=== PATIENT | female | born 1995 | race Caucasian/White ===

== ENCOUNTER 2017-10-24 08:24 | Emergency (ER) | payer MEDICAID ==
[2017-10-24 08:24] VITALS: BMI 35.7
[2017-10-24 09:16] LABS: INFLUENZA A B NEGATIVE FOR FLU A/B (NEGATIVE)
--- NOTE | 2017-10-24 09:22 | C.PDOC ---
History Of Present Illness 22 y/o female presents to ED with complaints of sore throat, mild cough, subjective fever, nausea, and vomiting for the last 3 days. Pt's daughter also here in ER with similar symptoms. Denies abdominal pain, diarrhea, or any other complaints. Time Seen by Provider: 10/24/17 08:46 Chief Complaint (Nursing): Flu-like Symptoms History Per: Patient History/Exam Limitations: no limitations Onset/Duration Of Symptoms: Days Current Symptoms Are (Timing): Still Present Location Of Pain: Throat Sick Contacts (Context): Family Member(s) Associated Symptoms: Fever, Sore Throat, Cough, Vomiting. denies: Diarrhea Ear Symptoms: Bilateral: None Recent travel outside of the [place]: No Additional History Per: Patient ( ) Past Medical History Reviewed: Historical Data, Nursing Documentation, Vital Signs Vital Signs: Last Vital Signs Temp 98.4 F 10/24/17 10:48 Pulse 93 H 10/24/17 10:48 Resp 20 10/24/17 10:48 BP 105/69 10/24/17 10:48 Pulse Ox 97 10/24/17 10:48 Surgical History: Family History: States: Unknown Family Hx - Social History Hx Alcohol Use: No Hx Substance Use: No - Immunization History Hx Tetanus Toxoid Vaccination: No Hx Influenza Vaccination: No Hx Pneumococcal Vaccination: No Review Of Systems Except As Marked, All Systems Reviewed And Found Negative. Constitutional: Positive for: Fever ENT: Positive for: Throat Pain. Negative for: Ear Pain, Nose Discharge, Nose Congestion Respiratory: Positive for: Cough. Negative for: Shortness of Breath, Sputum Gastrointestinal: Positive for: Nausea, Vomiting. Negative for: Abdominal Pain , Diarrhea Musculoskeletal: Negative for: Neck Pain Skin: Negative for: Rash, Bruising Neurological: Negative for: Headache, Dizziness Physical Exam - Physical Exam Appears: Non-toxic, No Acute Distress Skin: Normal Color, Warm, Dry Head: Atraumatic, Normacephalic Eye(s): bilateral: Normal Inspection Ear(s): Bilateral: Normal Nose: Normal Oral Mucosa: Moist Tongue: Normal Appearing Lips: Normal Appearing Throat: Erythema, Exudate, No Drooling Neck: Normal ROM, Supple Cardiovascular: Rhythm Regular, No Murmur Respiratory: Normal Breath Sounds, No Rales, No Rhonchi, No Wheezing Gastrointestinal/Abdominal: Soft, No Tenderness Extremity: Normal ROM, No Deformity Neurological/Psych: Oriented x3, Normal Speech ED Course And Treatment O2 Sat by Pulse Oximetry: 98 Pulse Ox Interpretation: Normal Medical Decision Making Medical Decision Making: Plan: Rapid strep Influenza AB Amoxicillin, Tylenol strep postivel. vitals stable. abd soft no ttp. stable for dc Disposition - Disposition Disposition: HOME/ ROUTINE Disposition Time: 09:21 Condition: STABLE Prescriptions: Amoxicillin [Amoxil 500 mg Cap] 500 mg PO TID #30 cap Instructions: Strep Throat (ED) Forms: [employer] (Azeri) Print Language: CYPRIOT - Clinical Impression Clinical Impression: Strep pharyngitis - Scribe Statement The provider has reviewed the documentation as recorded by the Scribe Cecilia Ballard All medical record entries made by the Scribe were at my direction and personally dictated by me. I have reviewed the chart and agree that the record accurately reflects my personal performance of the history, physical exam, medical decision making, and the department course for this patient. I have also personally directed, reviewed, and agree with the discharge instructions and disposition.
[2017-10-24 10:49] VITALS: BP 105/69; PULSE 93; RESP 20; TEMP 98.4
[2017-10-24 13:00] VITALS: O2SAT 98
== END 2017-10-24 10:49 | disposition home or self-care (01) ==
LOC: C.ER 08:24
DX: J02.0 Streptococcal pharyngitis (principal)